=== PATIENT | male | born 1950 | race Caucasian/White ===

== ENCOUNTER 2017-04-12 09:11 | Observation (INO) | payer MEDICARE ==
[~2017-04-12] VITALS: Ht 177.8 cm; Wt 113.0 kg
[2017-04-12] VITALS (10 sets, daily range): BP systolic 147–195; BP diastolic 71–86; PULSE 74–83; RESP 16–18; TEMP 97.8–98.8; O2SAT 94–99
[~2017-04-12 09:11] MED LIST: ALLO100T PO; DOXA1TAB66; ECOT81TA2 PO; LEVA750T PO; LIPI20TA PO; LISI-363 PO; METF850 PO; METO25 PO; POLYCITRA PO; PROM6.257 PO; SITA100 PO
[2017-04-12] MEDS ORDERED: ZOCO10TA PO (09:29)
[2017-04-12] MEDS ORDERED: ZOCO80TA PO (09:29)
[2017-04-12] MEDS ORDERED: ALLO300T2 PO (09:32)
[2017-04-12] MEDS ORDERED: METF500T PO (09:32)
[2017-04-12] MEDS ORDERED: POTA10TA2 PO (09:32)
[2017-04-12] MEDS ORDERED: LISI30TA4 PO (09:32)
[2017-04-12] MEDS ORDERED: DOXA1TAB35 PO (09:32)
[2017-04-12 10:21] LABS: AUTOMATED NEUTROPHIL # 4.5 TH/MM3 (1.8-7.7); BASOPHIL % 0.7 % (0.0-2.0); EOSINOPHIL # 0.2 TH/MM3 (0-0.4); EOSINOPHIL % 3.8 % (0.0-4.0); HEMATOCRIT 40.7 % (39.0-51.0); HEMOGLOBIN 13.5 GM/DL (13.0-17.0); LYMPH % 17.1 % (9.0-44.0); LYMPHOCYTE # 1.1 TH/MM3 (1.0-4.8); MEAN CORPUSCULAR HEMOGLOBIN 30.1 PG (27.0-34.0); MEAN CORPUSCULAR HGB CONC 33.1 % (32.0-36.0); MEAN PLATELET VOLUME 8.6 FL (7.0-11.0); MONO % 8.1 % (0.0-8.0); MONOCYTE # 0.5 TH/MM3 (0-0.9); NEUT % 70.3 % (16.0-70.0); PLATELET COUNT 205 TH/MM3 (150-450); RED BLOOD COUNT 4.47 MIL/MM3 (4.50-5.90); RED CELL DISTRIBUTION WIDTH 16.2 % (11.6-17.2); WHITE BLOOD COUNT 6.5 TH/MM3 (4.0-11.0)
--- NOTE | 2017-04-12 10:30 | PD ---
HPI Chief Complaint: Dizziness Time Seen by Provider: 09:41 Travel History International Travel<30 days: No Contact w/Intl Traveler<30days: No Traveled to known affect area: No History of Present Illness HPI This is a 66-year-old male who presents to the emergency department having had onset of dizziness 3 days ago when he was in the shower and looked up at the ceiling. He describes feeling lightheaded and when he walks he feels like he is falling to the right, constant, severe. Since then he has been unable to walk steady. When he sits he feels completely normal. He denies any headache, nausea, vomiting, fevers or chills and denies any difficulty speaking. Per the nurse the patient does drink alcohol on a daily basis. PFSH Past Medical History Hx Anticoagulant Therapy: Yes (ASA 81) Asthma: No Blood Disorders: No Heart Rhythm Problems: No Cancer: No Cardiovascular Problems: Yes High Cholesterol: Yes Chemotherapy: No Chest Pain: No Congestive Heart Failure: No COPD: No Diabetes: Yes Patient Takes Glucophage: Yes Diminished Hearing: No Endocrine: No Genitourinary: Yes Hypertension: Yes Immune Disorder: No Implanted Vascular Access Dvce: Yes Kidney Stones: Yes Musculoskeletal: No Neurologic: No Psychiatric: No Reproductive: No Respiratory: Yes Immunizations Current: Yes Radiation Therapy: No Sleep Apnea: No Tetanus Vaccination: < 5 Years Past Surgical History Abdominal Surgery: Yes (BARIATIC) Body Medical Devices: CARDIAC STENTS Cardiac Surgery: Yes (STENT PLACEMENT X 2) Other Surgery: Yes Social History Alcohol Use: Yes (socially) Tobacco Use: No Substance Use: No Allergies-Medications (Allergen,Severity, Reaction): Coded Allergies: No Known Allergies (Verified Adverse Reaction, Unknown, 04/12/17) Reported Meds & Prescriptions Reported Meds & Active Scripts Active Reported Doxazosin (Doxazosin Mesylate) 2 Mg Tab 2 Mg PO DAILY Metformin (Metformin HCl) 500 Mg Tab 500 Mg PO BIDPC Potassium Chloride ER (Potassium Chloride) 10 Meq Tab 10 Meq PO DAILY Allopurinol 300 Mg Tab 300 Mg PO DAILY Lisinopril 30 Mg Tab 30 Mg PO DAILY Zocor (Simvastatin) 10 Mg Tab 10 Mg PO DAILY Review of Systems Except as stated in HPI: all other systems reviewed are Neg Physical Exam Narrative GENERAL:Well appearing, no acute distress SKIN: Focused skin assessment warm and dry. HEAD: Atraumatic. Normocephalic. EYES: Pupils equal and round. No injection or drainage. ENT: Moist mucous membranes NECK: Trachea midline. CARDIOVASCULAR: Regular rate and rhythm. No murmur appreciated. RESPIRATORY: Clear to auscultation. Breath sounds equal bilaterally. GASTROINTESTINAL: Abdomen soft, non-tender, nondistended. MUSCULOSKELETAL: No obvious deformities. NEUROLOGICAL: Awake and alert. No obvious cranial nerve deficits. No dysarthria or aphasia. No upper or lower extremity drift. No upper extremity ataxia. Visual messer intact. Gait is unstable, patient is able to take 2 steps and then loses balance. PSYCHIATRIC: Appropriate mood and affect; insight and judgment normal. Data Data Last Documented VS Vital Signs Date Time Temp Pulse Resp B/P (MAP) Pulse Ox O2 Delivery O2 Flow Rate FiO2 04/12/17 12:07 97.8 78 16 171/80 (110) 99 Room Air Orders Orders Complete Blood Count With Diff (04/12/17 09:51) ^ Insert Iv (04/12/17 09:51) Comprehensive Metabolic Panel (04/12/17 09:51) Alcohol (Ethanol) (04/12/17 09:51) Electrocardiogram (04/12/17 09:40) Labetalol Inj (Trandate Inj) (04/12/17 11:45) Place In Observation (04/12/17 ) Vital Signs (Adult) Q2HX12,Q4H (04/12/17 12:09) Nih Stroke Scale - Nihss .Daily (04/12/17 12:09) Neuro Checks Q2HX12,Q4H (04/12/17 12:09) Notify Dr: Other (04/12/17 12:09) Remove Urinary Catheter .ONCE (04/12/17 12:09) Pt Request For Service (04/12/17 12:09) Case Management Consult (04/12/17 ) Activity Oob Ad Johanna (04/12/17 12:09) Nursing Bedside Swallow Assess .ONCE (04/12/17 12:09) Scd Bilateral/Knee High NANCY.QSHIFT (04/12/17 12:09) Hemoglobin (Hgb) A1c (04/12/17 12:09) Lipid Profile (04/13/17 06:00) Us Carotid Arteries Comp Bilat (04/12/17 ) ^ Hold Medication (04/12/17 12:09) Sodium Chloride 0.9% Flush (Ns Flush) (04/12/17 21:00) Sodium Chloride 0.9% Flush (Ns Flush) (04/12/17 12:15) Acoustical Material Worker / Telemetry NANCY.Q8H (04/12/17 12:09) Consult Stroke Navigator (04/12/17 ) Consult Neurology (04/12/17 ) Admit Order (Ed Use Only) (04/12/17 12:12) Ct Brain W/O Iv Contrast(Rout) (04/12/17 ) Labs Laboratory Tests Test 04/12/17 09:41 White Blood Count 6.5 TH/MM3 Red Blood Count 4.47 MIL/MM3 Hemoglobin 13.5 GM/DL Hematocrit 40.7 % Mean Corpuscular Volume 91.0 FL Mean Corpuscular Hemoglobin 30.1 PG Mean Corpuscular Hemoglobin Concent 33.1 % Red Cell Distribution Width 16.2 % Platelet Count 205 TH/MM3 Mean Platelet Volume 8.6 FL Neutrophils (%) (Auto) 70.3 % Lymphocytes (%) (Auto) 17.1 % Monocytes (%) (Auto) 8.1 % Eosinophils (%) (Auto) 3.8 % Basophils (%) (Auto) 0.7 % Neutrophils # (Auto) 4.5 TH/MM3 Lymphocytes # (Auto) 1.1 TH/MM3 Monocytes # (Auto) 0.5 TH/MM3 Eosinophils # (Auto) 0.2 TH/MM3 Basophils # (Auto) 0.0 TH/MM3 CBC Comment DIFF FINAL Differential Comment Erythrocyte Sedimentation Rate 31 mm/hr Blood Urea Nitrogen 17 MG/DL Creatinine 1.07 MG/DL Random Glucose 126 MG/DL Total Protein 7.8 GM/DL Albumin 3.8 GM/DL Calcium Level 8.9 MG/DL Alkaline Phosphatase 90 U/L Aspartate Amino Transf (AST/SGOT) 26 U/L Alanine Aminotransferase (ALT/SGPT) 27 U/L Total Bilirubin 0.3 MG/DL Sodium Level 138 MEQ/L Potassium Level 5.4 MEQ/L Chloride Level 104 MEQ/L Carbon Dioxide Level 27.7 MEQ/L Anion Gap 6 MEQ/L Estimat Glomerular Filtration Rate 69 ML/MIN Vitamin B12 Level 1196 PG/ML Thyroid Stimulating Hormone 3rd Gen 2.740 uIU/ML Ethyl Alcohol Level LESS THAN 3 MG/DL MDM Medical Decision Making Medical Screen Exam Complete: Yes Emergency Medical Condition: Yes Interpretation(s) Afebrile, no tachycardia, hypertensive No leukocytosis Sedimentation rate is 31 Mild hyperkalemia Differential Diagnosis BPPV, stroke, TIA, peripheral neuropathy Narrative Course This is a 66-year-old male who presents to the emergency department with dizziness and gait instability been going on for 3 days. He was placed in a monitor and an IV was established. Labs are obtained which were reassuring. He has a normal neurologic exam with the exception of his gait and when he walks 2 steps he falls to the right side. He is very unsteady on his feet. I think He requires an MRI to rule out a posterior circulation stroke. He also said the symptoms were similar in the past to when he was bradycardic and required a pacemaker. His pacemaker was interrogated here in the emergency department. He had several episodes recently of atrial flutter however only lasted for 40 seconds and his symptoms are present here in the emergency department so I don't think they're cardiac in nature. Diagnosis Primary Impression: Dizziness Admitting Information Admitting Physician Requests: Observation Caren Inman MD Apr 12, 2017 10:30
[2017-04-12 10:43] LABS: ALBUMIN 3.8 GM/DL (3.4-5.0); ALT (GPT) 27 U/L (12-78); AST (GOT) 26 U/L (15-37); BICARBONATE 27.7 MEQ/L (21.0-32.0); BLOOD UREA NITROGEN 17 MG/DL (7-18); CALCIUM 8.9 MG/DL (8.5-10.1); CHLORIDE 104 MEQ/L (98-107); CREATININE 1.07 MG/DL (0.60-1.30); GLOMERULAR FILTRATION RATE 69 ML/MIN (>89); GLUCOSE,RANDOM 126 MG/DL (74-106); SODIUM (NA) 138 MEQ/L (136-145)
[2017-04-12 10:44] LABS: ALKALINE PHOSPHATASE 90 U/L (45-117); TOTAL BILIRUBIN ADULT 0.3 MG/DL (0.2-1.0); TOTAL PROTEIN 7.8 GM/DL (6.4-8.2)
[2017-04-12] MEDS ORDERED: LABETALOL HCL 100 MG/20 ML VIAL IV PUSH ONE (11:45)
[2017-04-12] MEDS ORDERED: SODIUM CHLORIDE 0.9% FLUSH 10 ML FLUSH IV FLUSH PRN (12:15)
--- NOTE | 2017-04-12 12:18 | EKG ---
Date Performed: 04/12/2017 Time Performed: 09:40:08 PTAGE: 66 years EKG: ELECTRONIC VENTRICULAR PACEMAKER ABNORMAL RHYTHM ECG NO PREVIOUS TRACING DOCTOR: Nate Perez Interpretating Date/Time 04/12/2017 12:17:11
--- NOTE | 2017-04-12 13:35 | RADRPT ---
EXAM DATE/TIME: 04/12/2017 12:34 [facility] COMPARISON: No previous studies available for comparison. INDICATIONS : Syncope. MEDICAL HISTORY : Hypercholesterolemia. Hypertension. Renal calculi. Diabetes. SURGICAL HISTORY : Coronary artery stent. Bariatric surgery. Artificial eye socket. ENCOUNTER: Initial ACUITY: 1 day PAIN SCORE: 2/10 LOCATION: Bilateral neck PEAK SYSTOLIC VELOCITIES (cm/sec): ICA/CCA RATIO: Right: 1.1 Left: 0.9 ICA: Right: 82 Left: 98 CCA: Right: 78 Left: 103 ECA: Right: 118 Left: 80 VERTEBRAL: Right: 63 antegrade Left: 52 antegrade Elevated flow velocities and ICA/CCA ratios have been found to correlate with increased degrees of vessel stenosis, calculated as percentage of diameter relative to a normal segment of distal ICA/CCA FINDINGS: RIGHT CAROTID: There is no evidence for a hemodynamically significant carotid stenosis. Minimal int imal hyperplasia is present with scattered calcific plaque. LEFT CAROTID: There is no evidence for a hemodynamically significant carotid stenosis. Minimal inti mal hyperplasia is present with scattered calcific plaque. VERTEBRAL ARTERIES: Flow is antegrade in both vertebral arteries. MISCELLANEOUS: There are no ancillary masses or adenopathy. CONCLUSION: Negative examination for a hemodynamically significant carotid stenosis. Abdiaziz Harvey MD FACR on April 12, 2017 at 13:32 Board Certified Radiologist. This report was verified electronically.
--- NOTE | 2017-04-12 14:52 | HHI.HP ---
[facility] Patrizia Neal MD Admission Diagnosis dizziness Diagnoses: Travel History International Travel<30 Days: No Contact w/Intl Traveler <30 Da: No Traveled to Known Affected Are: No History of Present Illness woke up at 4am was getting up to go to bathroom felt very dizziness, unsteady gait managed to go to bathroom, came back,still symptomatic, came to bed and still was dizziness all through the day- thus came to ER by car and ex drove him felt like he was drunk felt light headed and disoriented more of very unsteady gait baseline is ambulatory without any assistance, is usually still driving no focal weakness or weakness no numbness or tingling no speech issue no URI symptoms, no ear problems 3 days ago, while he was shower and shampooing hair, he looked up to shower and did have severe dizziness, and imbalance - but went away after he held onto something that was the only other time he felt currently, still very symptomatic every time he moves his head s/p ppm - placed dec 2015- bradycardia at that time, did have similar symptoms and was told vertigo and was given meclizine initially. But then had syncopal episode while at [facility] and found to have symptomatic bradycardia and ppm was placed. no changes in his meds for years fasting blood sugars in am are 96-105 Review of Systems Except as stated in HPI: all other systems reviewed are Neg Past Family Social History Past Medical History htn dm cad s/p 2 stents symptomatic bradycardia- s/p ppm kidney stones Past Surgical History s/p ppm total right hip replaced november 2016 right rotator cuff sx bariatric sx eye sx carpal tunnel - bilateral Allergies: Coded Allergies: No Known Allergies (Verified Adverse Reaction, Unknown, 04/12/17) Family History father- dm older sister- from bradycardia at 54yo mother- from cirrhosis from rheumatic fever complications Social History no smoking socially drink once in a while no drugs 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 Physical Exam Vital Signs Vital Signs Date Time Temp Pulse Resp B/P (MAP) Pulse Ox O2 Delivery O2 Flow Rate FiO2 04/12/17 13:53 97.8 79 18 163/79 (107) 96 04/12/17 13:15 04/12/17 12:07 97.8 78 16 171/80 (110) 99 Room Air 04/12/17 11:37 78 17 187/86 (119) 99 Room Air 04/12/17 11:20 97.9 77 17 168/86 (113) 99 Room Air 04/12/17 09:42 68 17 195/83 (120) 67 17 173/72 (105) 84 18 188/86 (120) 04/12/17 09:33 83 17 99 Room Air 04/12/17 09:12 98.7 83 18 194/86 (122) 96 Room Air Physical Exam GENERAL: This is a well-nourished, well-developed patient, in no apparent distress. SKIN: No rashes, ecchymoses or lesions. Cool and dry. HEAD: Atraumatic. Normocephalic. No temporal or scalp tenderness. EYES: Pupils equal round and reactive. Extraocular motions intact. No scleral icterus. No injection or drainage. ENT: Nose without bleeding, purulent drainage or septal hematoma.Airway patent. NECK: Trachea midline. No JVD Supple, nontender, no meningeal signs. CARDIOVASCULAR: Regular rate and rhythm without murmurs, gallops, or rubs. RESPIRATORY: Clear to auscultation. Breath sounds equal bilaterally. No wheezes , rales, or rhonchi. GASTROINTESTINAL: Abdomen soft, non-tender, nondistended. No hepato-splenomegaly , or palpable masses. No guarding. MUSCULOSKELETAL: Extremities without clubbing, cyanosis, or edema. No calf tenderness NEUROLOGICAL: Awake and alert. Cranial nerves II through XII intact. Motor and sensory grossly within normal limits. Normal speech. dizziness on movement of head Laboratory Laboratory Tests Test 04/12/17 09:41 White Blood Count 6.5 Red Blood Count 4.47 Hemoglobin 13.5 Hematocrit 40.7 Mean Corpuscular Volume 91.0 Mean Corpuscular Hemoglobin 30.1 Mean Corpuscular Hemoglobin Concent 33.1 Red Cell Distribution Width 16.2 Platelet Count 205 Mean Platelet Volume 8.6 Neutrophils (%) (Auto) 70.3 Lymphocytes (%) (Auto) 17.1 Monocytes (%) (Auto) 8.1 Eosinophils (%) (Auto) 3.8 Basophils (%) (Auto) 0.7 Neutrophils # (Auto) 4.5 Lymphocytes # (Auto) 1.1 Monocytes # (Auto) 0.5 Eosinophils # (Auto) 0.2 Basophils # (Auto) 0.0 CBC Comment DIFF FINAL Differential Comment Blood Urea Nitrogen 17 Creatinine 1.07 Random Glucose 126 Total Protein 7.8 Albumin 3.8 Calcium Level 8.9 Alkaline Phosphatase 90 Aspartate Amino Transf (AST/SGOT) 26 Alanine Aminotransferase (ALT/SGPT) 27 Total Bilirubin 0.3 Sodium Level 138 Potassium Level 5.4 Chloride Level 104 Carbon Dioxide Level 27.7 Anion Gap 6 Estimat Glomerular Filtration Rate 69 Ethyl Alcohol Level LESS THAN 3 Result Diagram: 04/12/1794004/12/17940 Imaging Last 48 hours Impressions Butch VTE Risk Assessment Butch VTE Risk Assessment: Mod/High Risk (score >= 2) Caprini Risk Assessment Model Point Value = 1 Point Value = 2 Point Value = 3 Point Value = 5 Age 41-60 Minor surgery BMI > 25 kg/m2 Swollen legs Varicose veins or History of unexplained or recurrent spontaneous Oral contraceptives or hormone replacement Sepsis (< 1 month) Serious lung disease, including pneumonia (< 1 month) Abnormal pulmonary function Acute myocardial infarction Congestive heart failure (< 1 month) History of inflammatory bowel disease Medical patient at bed rest Age 61-74 Arthroscopic surgery Major open surgery (> 45 min) Laparoscopic surgery (> 45 min) Malignancy Confined to bed (> 72 hours) Immobilizing plaster cast Central venous access Age >= 75 History of VTE Family history of VTE Factor V Leiden Prothrombin [id number] Lupus anticoagulant Anticardiolipin antibodies Elevated serum homocysteine Heparin-induced thrombocytopenia Other congenital or acquired thrombophilia Stroke (< 1 month) Elective arthroplasty Hip, pelvis, or leg fracture Acute spinal cord injury (< 1 month) Prophylaxis Regimen Total Risk Factor Score Risk Level Prophylaxis Regimen 0-1 Low Early ambulation 2 Moderate Order ONE of the following: *Sequential Compression Device (SCD) *Heparin 5000 units SQ BID 3-4 Higher Order ONE of the following medications: *Heparin 5000 units SQ TID *Enoxaparin/Lovenox 40 mg SQ daily (WT < 150 kg, CrCl > 30 mL/min) *Enoxaparin/Lovenox 30 mg SQ daily (WT < 150 kg, CrCl > 10-29 mL/min) *Enoxaparin/Lovenox 30 mg SQ BID (WT < 150 kg, CrCl > 30 mL/min) AND/OR *Sequential Compression Device (SCD) 5 or more Highest Order ONE of the following medications: *Heparin 5000 units SQ TID (Preferred with Epidurals) *Enoxaparin/Lovenox 40 mg SQ daily (WT < 150 kg, CrCl > 30 mL/min) *Enoxaparin/Lovenox 30 mg SQ daily (WT < 150 kg, CrCl > 10-29 mL/min) *Enoxaparin/Lovenox 30 mg SQ BID (WT < 150 kg, CrCl > 30 mL/min) AND *Sequential Compression Device (SCD) Assessment and Plan Assessment and Plan Impression: severe dizziness and unsteady gait possible posterior circulation insufficiency possible cerebella cva uncontrolled htn on admission- possibly contributing to symptoms htn dm cad s/p 2 stents symptomatic bradycardia- s/p ppm kidney stones Plan: permissive htn for now carotid sono - ordered, personally reviewed MRI of brain- pt has MRI compatible ppm- checked with tech and card hold doxazosin for now till MRI resume other meds hold k as K is 5.4 pt takes k for uric acid stones dvt prophylaxis with lovenox if MRI / head ct neg for bleed Discussed Condition With Patient, ER physician, nursing staff Marcelle Esquivel MD Apr 12, 2017 14:52
[2017-04-12] MEDS ORDERED: GLUCAGON 1 MG/ML VIAL OTHER PRN (15:00)
[2017-04-12] MEDS ORDERED: DEXTROSE 50% IN WATER 50 ML VIAL(D50) IV PUSH PRN (15:00)
[2017-04-12] MEDS ORDERED: GADODIAMIDE PF 287 MG/ML 20 ML VIAL (for RAD MRI) IVCONTRAST ONE (16:25)
--- NOTE | 2017-04-12 16:27 | RADRPT ---
EXAM DATE/TIME: 04/12/2017 15:52 [facility] COMPARISON: No previous studies available for comparison. INDICATIONS : Dizziness. CVA. MEDICAL HISTORY : Hypertension. Diabetes mellitus type 2. SURGICAL HISTORY : Pacemaker. Gastric bypass. Hip. Shoulder. Bilateral eye surgery. ENCOUNTER: Subsequent ACUITY: 1 day PAIN SCORE: 0/10 LOCATION: head. Please note a normal MRA of the brain does not entirely exclude the possibility of a small aneurysm, nor the possibility of distal intracranial vessel disease. TECHNIQUE: 3D time of flight MRA was performed. Source images, multiplanar STS MIP, and 3D volume MIP reconstru ctions were reviewed. FINDINGS: There is excellent visualization of the major intracranial arteries out to the second-order branch ve ssels. There is no evidence for aneurysm, vessel truncation or stenosis, and no evidence for vascula r malformation. CONCLUSION: Negative MRA of the brain for major branch vessel occlusion. Abdiaziz Harvey MD FACR on April 12, 2017 at 16:24 Board Certified Radiologist. This report was verified electronically.
--- NOTE | 2017-04-12 16:36 | RADRPT ---
EXAM DATE/TIME: 04/12/2017 15:52 [facility] COMPARISON: No previous studies available for comparison. INDICATIONS : Dizziness. CVA. CONTRAST: 20 cc Omniscan (gadodiamide) IV MEDICAL HISTORY : Hypertension. Diabetes mellitus type 2. SURGICAL HISTORY : Pacemaker. Gastric bypass. Hip. Shoulder. Bilateral eye surgery. ENCOUNTER: Subsequent ACUITY: 1 day PAIN SCORE: 0/10 LOCATION: head. TECHNIQUE: Multiplanar, multisequence MRI of the brain was performed both prior to and following the administrat ion of paramagnetic contrast. FINDINGS: There is no restricted diffusion to suggest an acute ischemic event. Ventricular size is appropriate. There are no extra-axial fluid collections appreciated. No significant periventricular white matter changes. Midline structures are intact There is no parenchymal hemorrhage Following intravenous administration of gadolinium there is no abnormal contrast enhancement. Major venous structures are patent. CONCLUSION: Negative MRI of the brain without and with contrast. Abdiaziz Harvey MD FACR on April 12, 2017 at 16:32 Board Certified Radiologist. This report was verified electronically.
--- NOTE | 2017-04-12 16:47 | RADRPT ---
EXAM DATE/TIME: 04/12/2017 15:52 [facility] COMPARISON: No previous studies available for comparison. INDICATIONS : Dizziness. CVA. CONTRAST: 20 cc Omniscan (gadodiamide) IV MEDICAL HISTORY : Hypertension. Diabetes mellitus type 2. SURGICAL HISTORY : Pacemaker. Gastric bypass. Hip. Shoulder. Bilateral eye surgery. ENCOUNTER: Subsequent ACUITY: 1 day PAIN SCORE: 0/10 LOCATION: neck. Percent stenosis is calculated using the diameter of the stenotic region over the diameter of the nor mal distal internal carotid artery. TECHNIQUE: Bolus infused MRA of the extracranial circulation was performed using a neurovascular coil. Post pro cessing was performed including rotating subvolume maximum intensity projections of each carotid jazmyne ry, rotating full volume maximum intensity projections of both carotid arteries, sagittal and coronal sliding thin slab reformations of each carotid artery, and left oblique sliding thin slab reformatio n through the aortic arch to include the origin of the arch branch vessels. FINDINGS: AORTIC ARCH: There is a three vessel origin of the great vessels from the aorta. No evidence of ostial narrowing. RIGHT CAROTID: The common carotid artery is intact. The carotid bulb has a normal configuration without ulceration or narrowing. The internal carotid artery lumen is smooth without stenosis. The external carotid ar yamil is intact. LEFT CAROTID: The common carotid artery is intact. The carotid bulb has a normal configuration without ulceration or narrowing. The internal carotid artery lumen is smooth without stenosis. The external carotid ar yamil is intact. VERTEBRALS: The vertebral arteries have a symmetric diameter. No stenotic lesions are seen. CONCLUSION: Negative for carotid stenosis. Abdiaziz Harvey MD FACR on April 12, 2017 at 16:44 Board Certified Radiologist. This report was verified electronically.
[2017-04-12 16:54] LABS: HEMOGLOBIN A1C 6.7 % (4.3-6.0)
[2017-04-12] MEDS: INSULIN ASPART SUPPLEMENTAL SCALE SQ SCH ×2 (17:00→20:12)
--- NOTE | 2017-04-12 17:03 | MB ---
cc: CIERRA RIVERA DATE OF CONSULTATION 04/12/17 REASON FOR CONSULTATION A 66 year old right-handed male with hypertension, insulin dependent diabetes, hypercholesterolemia. He takes about 81 mg of aspirin a day. He has a history of cardiac stent, pacemaker for bradycardia, kidney stones, vertigo one many years ago, possible ulcer. He woke up, turned on the TV at 4 a.m. this morning, felt like he was imbalanced, no true vertigo, feels a little dizzy if he puts his head back. No chest pain, palpitations or headache. He subsequently came into the hospital. REVIEW OF SYSTEMS He denies any known A. Fib, coumadin, renal disease besides the kidney stones, hepatic or pulmonary disease, thyroid disease, lupus, cancer, seizure, stroke. SOCIAL HISTORY He is not a smoker or a drinker. Lives with his ex-. FAMILY HISTORY Negative for cancer, seizure, positive stroke in his father. MEDICATIONS 1. Baby aspirin a day 2. Doxazosin 3. Metformin 4. Potassium 5. Allopurinol 6. Lisinopril 7. Zocor ALLERGIES NO KNOWN DRUG ALLERGIES PHYSICAL EXAMINATION Afebrile, 188/86 to 163/79, 18, 79. NECK: There were no carotid vertebral bruits. HEART: Regular rate and rhythm. I did not detect a murmur. Easily listen for vertebral bruit if there was vertigo or spinning. I am worried about posterior circulation. Visual messer are full. Pupils are equal. Extraocular movements are intact without nystagmus. Face symmetrical with normal sensation. Tongue was midline. There is no drift. He had normal strength in upper and lower extremities bilateral. DTRs are trace throughout. Toes are downgoing bilaterally. Pinprick and vibratory sense are intact throughout. He is not ataxic on finger to nose. His right heel to garcia was a little bit unsteady, however, he said he had right hip surgery not too long ago. Heel to garcia normal on the left. Gait is actually steady. Romberg negative. No nystagmus was noted. LABORATORY DATA CBC is normal. Basic metabolic profile - potassium is 5.4, otherwise, normal. Liver function tests are normal. IMAGING STUDIES Carotid ultrasound was negative. IMPRESSION Neurological examination was normal except he is a little bit unsteady on heel to garcia on the right side. Whether that is due to the recent hip surgery is unclear. We will check MRA of the neck, MRA [place] of [place] and MRI of the brain to make sure that there is no posterior circulation abnormality or infarct. If that is negative, we will check a Landaverde-Cobb, get his blood pressure down and, depending on what the MRI shows, he could possibly be discharged the first thing in the morning. Electrocardiogram showed it was ventricular paced. MD SHIRA Chao/ /3:29 PM /11:10 AM
--- NOTE | 2017-04-12 17:38 | RADRPT ---
EXAM DATE/TIME: 04/12/2017 17:28 [facility] COMPARISON: No previous studies available for comparison. INDICATIONS : Dizziness. RADIATION DOSE: 37.04 CTDIvol (mGy) MEDICAL HISTORY : Cardiovascular disease. Hypertension. SURGICAL HISTORY : Pacemaker. ENCOUNTER: Initial ACUITY: 1 day PAIN SCALE: 0/10 LOCATION: cranial TECHNIQUE: Multiple contiguous axial images were obtained of the head. Using automated exposure control and adj ustment of the mA and/or kV according to patient size, radiation dose was kept as low as reasonably a chievable to obtain optimal diagnostic quality images. DICOM format image data is available electro nically for review and comparison. FINDINGS: There is no evidence of acute cortical infarction, acute hemorrhage, mass effect or midline shift. Bi frontal atrophy is present. Posterior fossa structures are unremarkable. There is benign-appearing mu cosal disease in the left maxillary sinus. CONCLUSION: 1. No evidence of acute intracranial pathology. No masses are identified. 2. Bifrontal atrophy Jamison Pereira MD on April 12, 2017 at 17:35 Board Certified Radiologist. This report was verified electronically.
[2017-04-12 18:57] LABS: BILIRUBIN, URINE NEG (NEG); BLOOD, URINE NEG (NEG); GLUCOSE,URINE NEG (NEG); KETONE, URINE NEG (NEG); NITRITE,URINE NEG (NEG); SQUAMOUS EPITHELIAL CELL URINE <1 /hpf (0-5); URINE COLOR LIGHT-YELLOW (YELLW/STRAW); URINE LEUKOCYTE ESTERASE NEG (NEG)
[2017-04-12] MEDS: SODIUM CHLORIDE 0.9% FLUSH 10 ML FLUSH IV FLUSH SCH (21:00)
[2017-04-13 03:17] VITALS: BP 142/71; PULSE 71; RESP 18; TEMP 98.4; O2SAT 95
[2017-04-13 04:32] VITALS: PULSE 68
--- NOTE | 2017-04-13 06:29 | HHI.PR ---
Subjective Remarks sr stillfeels balance off Objective Vital Signs Date Time Temp Pulse Resp B/P (MAP) Pulse Ox O2 Delivery O2 Flow Rate FiO2 04/13/17 04:32 68 04/13/17 03:17 98.4 71 18 142/71 (94) 95 04/12/17 22:51 98.8 77 18 147/71 (96) 94 04/12/17 19:32 98.4 74 18 160/75 (103) 94 162/85 (110) 154/71 (98) 04/12/17 17:46 82 04/12/17 17:12 97.8 79 18 158/74 (102) 97 04/12/17 13:53 97.8 79 18 163/79 (107) 96 04/12/17 13:15 04/12/17 12:07 97.8 78 16 171/80 (110) 99 Room Air 04/12/17 11:37 78 17 187/86 (119) 99 Room Air 04/12/17 11:20 97.9 77 17 168/86 (113) 99 Room Air 04/12/17 09:42 68 17 195/83 (120) 67 17 173/72 (105) 84 18 188/86 (120) 04/12/17 09:33 83 17 99 Room Air 04/12/17 09:12 98.7 83 18 194/86 (122) 96 Room Air I/O 04/12/17 04/12/17 04/12/17 04/13/17 04/13/17 04/13/17 07:00 15:00 23:00 07:00 15:00 23:00 Output Total 650 ml Balance -650 ml Output Urine Total 650 ml Result Diagram: 04/12/17 0941 04/12/17 0941 Objective Remarks awake moves well still limp hallpike neg bilat still feels balance off Assessment and Plan Assessment and Plan imp standing bp and mri/a/a nl lab neg on asa 81 no cva i will just look at his cord make sure no compression there causing change of gait but not myelopathic on exam\ may be mild periph vestibulopathy if mri spine neg could dc PT (i note a mistake in my dication he coes have a radiated murmer left side to left carotid Jamison Mujica MD Apr 13, 2017 06:29
[2017-04-13 07:11] VITALS: BP 172/82; PULSE 71; RESP 20; TEMP 98.1; O2SAT 93
[2017-04-13 07:55] LABS: CHOLESTEROL/ HDL RATIO 3.43 RATIO
[2017-04-13 08:00] VITALS: PULSE 73
[2017-04-13] MEDS: INSULIN ASPART SUPPLEMENTAL SCALE SQ SCH ×3 (08:00→13:32)
--- NOTE | 2017-04-13 08:20 | HHI.PR ---
Subjective Remarks in no acute distress. resting comfortably with no chest pain or sob. no dizziness today. no focal weakness. Objective Vitals Vital Signs Date Time Temp Pulse Resp B/P (MAP) Pulse Ox O2 Delivery O2 Flow Rate FiO2 04/13/17 07:11 98.1 71 20 172/82 (112) 93 04/13/17 04:32 68 04/13/17 03:17 98.4 71 18 142/71 (94) 95 04/12/17 22:51 98.8 77 18 147/71 (96) 94 04/12/17 19:32 98.4 74 18 160/75 (103) 94 162/85 (110) 154/71 (98) 04/12/17 17:46 82 04/12/17 17:12 97.8 79 18 158/74 (102) 97 04/12/17 13:53 97.8 79 18 163/79 (107) 96 04/12/17 13:15 04/12/17 12:07 97.8 78 16 171/80 (110) 99 Room Air 04/12/17 11:37 78 17 187/86 (119) 99 Room Air 04/12/17 11:20 97.9 77 17 168/86 (113) 99 Room Air 04/12/17 09:42 68 17 195/83 (120) 67 17 173/72 (105) 84 18 188/86 (120) 04/12/17 09:33 83 17 99 Room Air 04/12/17 09:12 98.7 83 18 194/86 (122) 96 Room Air I/O 04/12/17 04/12/17 04/12/17 04/13/17 04/13/17 04/13/17 07:00 15:00 23:00 07:00 15:00 23:00 Output Total 650 ml Balance -650 ml Output Urine Total 650 ml Result Diagram: 04/12/17 0941 04/12/17 0941 Imaging Last Impressions Neck Magnetic Resonance Angiography 04/12/17 1544 Signed Impressions: Service Date/Time: Wednesday, April 12, 2017 15:52 - CONCLUSION: Negative for carotid stenosis. Abdiaziz Harvey MD FACR Head Magnetic Resonance Angiography 04/12/17 1544 Signed Impressions: Service Date/Time: Wednesday, April 12, 2017 15:52 - CONCLUSION: Negative MRA of the brain for major branch vessel occlusion. Abdiazzi Harvey MD FACR Brain MRI 04/12/17 1544 Signed Impressions: Service Date/Time: Wednesday, April 12, 2017 15:52 - CONCLUSION: Negative MRI of the brain without and with contrast. Abdiaziz Harvey MD FACR Head CT 04/12/17 0000 Signed Impressions: Service Date/Time: Wednesday, April 12, 2017 17:28 - CONCLUSION: 1. No evidence of acute intracranial pathology. No masses are identified. 2. Bifrontal atrophy Jamison Pereira MD Carotid Artery Ultrasound 04/12/17 0000 Signed Impressions: Service Date/Time: Wednesday, April 12, 2017 12:34 - CONCLUSION: Negative examination for a hemodynamically significant carotid stenosis. Abdiaziz Harvey MD FACR Objective Remarks GENERAL: This is a well-nourished, well-developed patient, in no apparent distress. CARDIOVASCULAR: Regular rate and regular rhythm without murmurs, gallops, or rubs. RESPIRATORY: Clear to auscultation. Breath sounds equal bilaterally. No wheezes , rales, or rhonchi. GASTROINTESTINAL: Abdomen soft, non-tender, nondistended. Normal, active bowel sounds MUSCULOSKELETAL: Extremities without clubbing, cyanosis, or edema. NEURO: Alert & Oriented x4 to person, place, time, situation. Moves all ext x4 Medications and IVs Inpatient Medications Allopurinol (Zyloprim) 300 mg DAILY PO ; Start 04/13/17 at 09:00 Dextrose (D50w (Vial) Inj) 50 ml UNSCH PRN IV PUSH HYPOGLYCEMIA-SEE COMMENTS; Start 04/12/17 at 15:00 Glucagon (Glucagon Inj) 1 mg UNSCH PRN OTHER HYPOGLYCEMIA-SEE COMMENTS; Start 04/12/17 at 15:00 Insulin Aspart (NovoLOG SUPPLEMENTAL SCALE) 1 ACHS SLIDING SCALE SQ ; Start 04/12/17 at 17:00 Labetalol HCl (Trandate Inj) 10 mg ONCE ONCE IV PUSH Last administered on at 11:37; Start 04/12/17 at 11:45; Stop 04/12/17 at 11:46; Status DC Potassium Chloride (KCl) 10 meq DAILY PO ; Start 04/13/17 at 09:00; Stop 04/13/17 at 09:00; Status DC Pravastatin Sodium (Pravachol) 20 mg DAILY PO ; Start 04/13/17 at 09:00 Sodium Chloride (NS Flush) 2 ml UNSCH PRN IV FLUSH FLUSH AFTER USING IV ACCESS ; Start 04/12/17 at 12:15 A/P Assessment and Plan A/P severe dizziness and unsteady gait MRI/MRA brain with no acute abnormality. MRI cervical and thoracic spine pending. neurology evaluation appreciated. htn/dm/cad s/p 2 stents /symptomatic bradycardia- s/p ppm- resume home meds upon discharge with outpatient follow-up. Discharge Planning dc home later today if MRI of cervical and thoracic spine negative. Andry Dutta MD Apr 13, 2017 08:20
[2017-04-13] MEDS ORDERED: ASPI81TA23 PO (08:23)
[2017-04-13] MEDS ORDERED: PRAVASTATIN SOD 20 MG TAB PO SCH (09:00)
[2017-04-13] MEDS ORDERED: ALLOPURINOL 300 MG TAB PO SCH (09:00)
[2017-04-13] MEDS ORDERED: POTASSIUM CHLORIDE 10 MEQ CONTROLLED RELEASE TAB PO SCH (09:00)
[2017-04-13] MEDS: SODIUM CHLORIDE 0.9% FLUSH 10 ML FLUSH IV FLUSH SCH (09:27)
[2017-04-13 11:23] VITALS: BP_SYST 141; BP_SYST 143; BP_DIAS 70; BP_DIAS 71; BP_DIAS 75; PULSE 73; RESP 18; TEMP 98.4; O2SAT 92
--- NOTE | 2017-04-13 11:24 | RADRPT ---
EXAM DATE/TIME: 04/13/2017 10:09 [facility] COMPARISON: No previous studies available for comparison. INDICATIONS : Unsteady gait. MEDICAL HISTORY : Hypertension. Diabetes mellitus type 2. SURGICAL HISTORY : [employer] pacemaker, hip replacement, gastric bypass, shoulder, orbital ENCOUNTER: Subsequent ACUITY: 3 day PAIN SCORE: 0/10 LOCATION: back TECHNIQUE: Multiplanar multisequence MRI of the thoracic spine was performed. FINDINGS: Sagittal images demonstrate normal vertebral body alignment and curvature. No focal area of marrow re placement are identified. The cord itself is normal in caliber and signal intensity. The conus termin ates normally. Axial images were performed from T1-T2 through T12-L1. T1-T2: No significant abnormalities identified. T2-T3: No significant abnormalities identified. T3-T4: No significant abnormalities identified. T4-T5: No significant abnormalities identified. T5-T6: No significant abnormalities identified. T6-T7: A small central to right sided protrusion is present not significantly impinging on the theca l sac. There is no significant spinal canal stenosis. T7-T8: No significant abnormalities identified. T8-T9: A small central to left sided protrusion is present not significantly impinging on the thecal sac. There is no significant spinal canal stenosis. The neural foramina are clear bilaterally. T9-T10: No significant abnormalities identified. T10-T11: No significant abnormalities identified. T11-T12: No significant abnormalities identified. T12-L1: No significant abnormalities identified. CONCLUSION: Small disc protrusions as described above without stenosis. Jamison Pereira MD on April 13, 2017 at 11:20 Board Certified Radiologist. This report was verified electronically.
--- NOTE | 2017-04-13 11:27 | RADRPT ---
EXAM DATE/TIME: 04/13/2017 10:09 [facility] COMPARISON: No previous studies available for comparison. INDICATIONS : Unsteady gait. MEDICAL HISTORY : Hypertension. Diabetes mellitus type 2. SURGICAL HISTORY : [employer] pacemaker, hip replacement, gastric bypass, shoulder, orbital ENCOUNTER: Subsequent ACUITY: 3 day PAIN SCORE: 0/10 LOCATION: back TECHNIQUE: Multiplanar, multisequence MRI examination of the cervical spine was performed. FINDINGS: Sagittal images demonstrate normal vertebral body alignment and curvature. No focal areas of marrow r eplacement are identified. The craniocervical junction appears normal. The cord itself is normal in c aliber and signal intensity. Axial images were performed from C2-3 through C7-T1. C2-C3: No significant abnormalities identified. C3-C4: There is uncovertebral joint hypertrophy on left side. There is mild left sided neural foraminal narr owing. There is no significant spinal canal stenosis. C4-C5: There is mild diffuse annular bulge of the disc. The neural foramina are clear bilaterally. There is no significant spinal canal stenosis. C5-C6: There is mild annular bulge of the disc. There is moderate facet arthritis bilaterally with ligamentu m flavum hypertrophy. There is moderate neural foraminal narrowing bilaterally. C6-C7: There is a central to left-sided disc protrusion touching the ventral aspect of the cord without the formation. There is no significant spinal canal stenosis. There is mild neural foraminal narrowing bi laterally. This compromises the exiting left-sided nerve root exit zone. C7-T1: No significant abnormalities identified. CONCLUSION: 1. Sagittal left-sided disc protrusion at C6-C7 touching the ventral aspect of the cord and compromis ing the exiting left C7 nerve root. There is no significant spinal canal stenosis. Jamison Pereira MD on April 13, 2017 at 11:22 Board Certified Radiologist. This report was verified electronically.
[2017-04-13 15:34] VITALS: BP 179/82; PULSE 79; RESP 24; TEMP 98; O2SAT 95
--- NOTE | 2017-04-13 19:03 | ECHRPT ---
Indication: CVA/TIA CONCLUSIONS Normal left ventricular size. Severe concentric left ventricular hypertrophy. The left ventricular systolic function is normal with an estimated ejection fraction in the range of 55-60%. The left atrial size is moderately dilated. [id number] mitral valve regurgitation. Severee mitral annular calcification. Moderate mitral valve stenosis. Aortic valve sclerosis is present. Trace aortic valve regurgitation. Mild aortic valve stenosis. There is trace tricuspid valve regurgitation. The estimated pulmonary arterial pressure is 36.4 mmHg. BP: 172 / 82 HR: 71 Rhythm: Sinus MEASUREMENTS (Male / Female) Normal Values Technical Quality:Technically difficult study 2D ECHO LV Diastolic Diameter PLAX 4.4 cm 4.2 - 5.9 / 3.9 - 5.3 cm LV Systolic Diameter PLAX 3.4 cm IVS Diastolic Thickness 2.0 cm 0.6 - 1.0 / 0.6 - 0.9 cm LVPW Diastolic Thickness 2.0 cm 0.6 - 1.0 / 0.6 - 0.9 cm LV Relative Wall Thickness 0.9 RV Internal Dim ED PLAX 2.8 cm LVOT Diameter 2.1 cm Aortic Root Diameter 3.0 cm LA Systolic Diameter LX 4.7 cm 3.0 - 4.0 / 2.7 - 3.8 cm M-MODE AV Cusp Separation MM 1.8 cm DOPPLER AV Peak Velocity 266.0 cm/s AV Peak Gradient 28.3 mmHg AV Mean Gradient 16.5 mmHg AV Velocity Time Integral 52.9 cm LVOT Peak Velocity 97.4 cm/s LVOT Peak Gradient 3.8 mmHg LVOT Velocity Time Integral 18.4 cm LVOT Cardiac Index 2001.1 cm/minm AV Area Cont Eq vti 1.2 cm AV Area Cont Eq pk 1.3 cm MV Peak Velocity 215.0 cm/s MV Peak Gradient 18.5 mmHg MV Mean Velocity 141.0 cm/s MV Mean Gradient 9.0 mmHg MV Area PHT 3.4 cm Mitral E Point Velocity 165.0 cm/s Mitral A Point Velocity 206.0 cm/s Mitral E to A Ratio 0.8 LV E' Lateral Velocity 8.3 cm/s Mitral E to LV E' Lateral Ratio 19.9 LV E' Septal Velocity 4.7 cm/s Mitral E to LV E' Septal Ratio 35.3 TR Peak Velocity 257.0 cm/s TR Peak Gradient 26.4 mmHg Right Atrial Pressure 10.0 mmHg Pulmonary Artery Systolic Pressu 36.4 mmHg Right Ventricular Systolic Press 36.4 mmHg PV Peak Velocity 75.2 cm/s PV Peak Gradient 2.3 mmHg FINDINGS LEFT VENTRICLE Normal left ventricular size. Severe concentric left ventricular hypertrophy. The left ventricular systolic function is normal with an estimated ejection fraction in the range of 55-60%. RIGHT VENTRICLE Normal right ventricular size and systolic function. LEFT ATRIUM The left atrial size is moderately dilated. RIGHT ATRIUM The right atrial size is normal. ATRIAL SEPTUM Normal atrial septal thickness without atrial level shunting by limited color doppler interrogation. AORTA The aortic root and proximal ascending aorta are normal in size on limited imaging. MITRAL VALVE [id number] mitral valve regurgitation. Severee mitral annular calcification. Moderate mitral valve stenosis. AORTIC VALVE Aortic valve sclerosis is present. Trace aortic valve regurgitation. Mild aortic valve stenosis. TRICUSPID VALVE There is trace tricuspid valve regurgitation. The estimated pulmonary arterial pressure is 36.4 mmHg. PULMONARY VALVE No pulmonary valve regurgitation or stenosis. VESSELS The inferior vena cava is normal in size. PERICARDIUM No pericardial effusion. Valdez Vivar MD (Electronically Signed) Final Date:13 April 2017 19:02
== END 2017-04-13 18:35 | disposition home or self-care (01) ==
LOC: NEPE 09:11 → NEDA 12:14 → NEPFCDU 13:49
PROVIDERS: ADMIT Internal Medicine; ATTEND Internal Medicine
DX: R42 Dizziness and giddiness (principal); R26.2 Difficulty in walking, not elsewhere classified; Z79.82 Long term (current) use of aspirin; E78.00 Pure hypercholesterolemia, unspecified; E11.9 Type 2 diabetes mellitus without complications; I10 Essential (primary) hypertension; Z79.899 Other long term (current) drug therapy; I25.10 Atherosclerotic heart disease of native coronary artery without angina pectoris; Z95.5 Presence of coronary angioplasty implant and graft; Z79.4 Long term (current) use of insulin; Z95.0 Presence of cardiac pacemaker; R94.31 Abnormal electrocardiogram [ECG] [EKG]; I77.3 Arterial fibromuscular dysplasia; I65.22 Occlusion and stenosis of left carotid artery
CPT/HCPCS: 70450; 70544; 70548; 70553; 72141; 72146; 80053; 80061; 80307; 81001; 82607; 82948; 83036; 84132; 84443; 85025; 85652; 93005; 93306; 93880; 96372; 96374; 97162; 99285; A9579; G0378; G8987; G8988; J1815